=== PATIENT | male | born 1940 | race African-American/Black ===

== ENCOUNTER 2020-04-28 15:10 | Inpatient (IN) ==
[2020-04-28] MEDS ORDERED: cefTRIAXone 1,000 MG in SODIUM CHLORIDE 0.9% 100 ML IV STA (15:41)
[2020-04-28 15:49] LABS: Bacteria,Urine Occasional /HPF (Few); Bilirubin,Urine Negative (Negative); Blood, Urine Negative (Negative); Glucose,Urine (UA) Negative (Negative); Hyaline Casts,Urine 1 /LPF (0-3); Ketones,Urine Negative (Negative); Mucus,Urine Occasional /LPF (Occasional); Nitrite,Urine Negative (Negative); Protein,Urine Negative; RBC,Urine 1 /HPF (0-4); Squamous Epithelial Cell,Urine Occasional /HPF (0-10); Urine Appearance CLEAR (Clear); Urine Color Yellow (Yellow); Urine Specific Gravity 1.009 (1.001-1.035); Urine Urobilinogen < 2.0 EU/DL (0.2-1.0); WBC,Urine 3 /HPF (0-6)
[2020-04-28 16:30] LABS: Basophils # 0.1 10*3/uL (0.0-0.2); Basophils % 0.4 % (0.0-0.8); Eosinophils % 0.3 % (0.00-10.9); Hematocrit 29.4 VOL% (42.0-52.0); Hemoglobin 9.8 GM/DL (14.0-18.0); Immature Granulocytes % 0.6 %; Immature Granulocytes Absolute 0.08 #; Lymphocytes % 7.2 % (21.2-54.2); Mean Corpuscular HGB Conc 33.3 GM/DL (32-36); Mean Corpuscular Volume 78.4 FL (87-102); Mean Platelet Volume 9.9 FL (9.6-12.0); Monocytes % 12.3 % (1.7-12.7); Neutrophils % 79.2 % (38.7-73.9); Platelet Count 148 T/CUMM (130-400); Red Blood Count 3.75 MC/CUMM (3.8-5.5); Red Cell Distribution Width 18.3 % (9.3-17.3); White Blood Count 13.2 T/CUMM (4-12)
[2020-04-28 16:51] LABS: Albumin 2.9 G/DL (3.4-5.0); Bilirubin,Total 1.7 MG/DL (0.2-1.0); Calcium 8.5 MG/DL (8.5-10.1); Osmolality,Calculated 288.3 MOS/KG (273-304); Total Protein 8.5 G/DL (6.4-8.3)
[2020-04-28] MEDS ORDERED: AZITHROMYCIN 250 MG TABLET PO STA (17:02)
[2020-04-28] MEDS ORDERED: AZITHROMYCIN 250 MG TABLET ONE (17:03)
[2020-04-28] MEDS ORDERED: GLUCAGON 1 MG VIAL IM PRN (18:18)
[2020-04-28] MEDS ORDERED: ONDANSETRON 4 MG/2 ML VIAL IV PRN (18:18)
[2020-04-28] MEDS ORDERED: DOCUSATE SODIUM 100 MG CAPSULE PO PRN (18:18)
[2020-04-28] MEDS ORDERED: ACETAMINOPHEN 325 MG TABLET PO PRN (18:18)
[2020-04-28] MEDS ORDERED: DEXTROSE 50% 25 GM/50 ML VIAL IV PRN (18:18)
[2020-04-28] MEDS ORDERED: traMADol 50 MG TABLET PO PRN (18:27)
[2020-04-28] MEDS: carvediloL 6.25 MG TABLET PO SCH (22:20)
[2020-04-28] MEDS: LEVOFLOXACIN INJ 500 MG in PREMIX 1 EACH IV SCH (22:20)
[2020-04-28] MEDS: RIFAXIMIN 550 MG TABLET PO SCH (22:21)
[2020-04-28] MEDS: LACTULOSE 20 GM/30 ML UDCUP PO SCH (22:21)
[2020-04-28] MEDS: ENOXAPARIN 40 MG/0.4 ML SYRINGE SUBCUT SCH (22:21)
[2020-04-28] MEDS: TRAVOPROST 0.004% OPH SOLN 2.5 ML BOTTLE BOTH EYES SCH (22:21)
[2020-04-29 06:17] LABS: % Iron Saturation 15.2 % (18-50); Ferritin 116.4 ng/ml (26-388)
[2020-04-29 06:21] LABS: Parathyroid Hormone Intact 51.4 PG/ML (18.4-80.1)
[2020-04-29 06:23] LABS: Calcium 8.9 MG/DL (8.5-10.1); Osmolality,Calculated 285.4 MOS/KG (273-304); Thyroid Stimulating Hormone 2.26 uIU/ml (0.358-3.74)
[2020-04-29 06:24] LABS: Folate 16.6 NG/ML (5.4-24.0); Vitamin B12 363 PG/ML (211-911)
[2020-04-29 06:34] LABS: Basophils % 0.3 % (0.0-0.8); Eosinophils % 0.2 % (0.00-10.9); Hematocrit 27.3 VOL% (42.0-52.0); Hemoglobin 9.4 GM/DL (14.0-18.0); Immature Granulocytes % 1.2 %; Immature Granulocytes Absolute 0.15 #; Mean Corpuscular HGB Conc 34.4 GM/DL (32-36); Mean Corpuscular Volume 77.8 FL (87-102); Mean Platelet Volume 10.4 FL (9.6-12.0); Monocytes % 11.1 % (1.7-12.7); Neutrophils % 79.2 % (38.7-73.9); Platelet Count 124 T/CUMM (130-400); Red Blood Count 3.51 MC/CUMM (3.8-5.5); Red Cell Distribution Width 18.5 % (9.3-17.3); White Blood Count 12.8 T/CUMM (4-12)
[2020-04-29] MEDS: LEVOTHYROXINE 75 MCG TABLET PO SCH (06:49)
[2020-04-29 07:11] LABS: Band Neutrophils 3 % (0-10); Hypochromasia 1+; Lymphocytes 6 % (20-55); Platelet Estimate Normal; Segmented Neutrophils 85 % (50-85); Target Cells Few; Total Cells Counted 100
[2020-04-29 07:49] LABS: INR 1.5; PT Patient Result 16.2 SECS (9.8-11.9)
[2020-04-29 08:21] LABS: Sedimentation Rate-Westergren 79 MM/HR (0-20)
[2020-04-29] MEDS: ASPIRIN CHEW 81 MG TABLET PO SCH (08:33)
[2020-04-29] MEDS: ASCORBIC ACID 500 MG TABLET PO SCH (08:33)
[2020-04-29] MEDS: MAGNESIUM OXIDE 400 MG TABLET PO SCH (08:33)
[2020-04-29] MEDS: PANTOPRAZOLE 40 MG TABLET PO SCH (08:33)
[2020-04-29] MEDS: carvediloL 6.25 MG TABLET PO SCH ×2 (08:33→21:53)
[2020-04-29] MEDS: RIFAXIMIN 550 MG TABLET PO SCH ×2 (08:33→21:53)
[2020-04-29] MEDS: LACTULOSE 20 GM/30 ML UDCUP PO SCH ×4 (08:33→21:53)
[2020-04-29] MEDS: FUROSEMIDE 40 MG TABLET PO SCH (08:33)
[2020-04-29] MEDS: LINEZOLID 600 MG TABLET PO SCH ×2 (09:55→21:52)
[2020-04-29 11:34] LABS: Hemoglobin A1 (Alkaline) 97.2 % (96.5-98.5); Hemoglobin A2 (Alkaline) 2.8 % (1.5-3.5)
[2020-04-29] MEDS: FERROUS SULFATE 325 MG TABLET PO SCH ×2 (11:57→21:53)
[2020-04-29] MEDS: ENOXAPARIN 40 MG/0.4 ML SYRINGE SUBCUT SCH (21:52)
[2020-04-29] MEDS: CYANOCOBALAMIN 500 MCG TABLET PO SCH (21:53)
[2020-04-29] MEDS: TRAVOPROST 0.004% OPH SOLN 2.5 ML BOTTLE BOTH EYES SCH (21:53)
[2020-04-29] MEDS: LEVOFLOXACIN INJ 500 MG in PREMIX 1 EACH IV SCH (21:54)
[2020-04-30] MEDS: LEVOTHYROXINE 75 MCG TABLET PO SCH (05:39)
[2020-04-30 06:39] LABS: Basophils % 0.3 % (0.0-0.8); Eosinophils # 0.1 10*3/uL (0.0-0.87); Eosinophils % 0.6 % (0.00-10.9); Hematocrit 25.7 VOL% (42.0-52.0); Hemoglobin 8.7 GM/DL (14.0-18.0); Immature Granulocytes % 0.9 %; Lymphocytes % 8.8 % (21.2-54.2); Mean Corpuscular HGB Conc 33.9 GM/DL (32-36); Mean Corpuscular Volume 78.8 FL (87-102); Mean Platelet Volume 10.7 FL (9.6-12.0); Monocytes % 10.1 % (1.7-12.7); Neutrophils % 79.3 % (38.7-73.9); Platelet Count 111 T/CUMM (130-400); Red Blood Count 3.26 MC/CUMM (3.8-5.5); Red Cell Distribution Width 18.2 % (9.3-17.3); White Blood Count 10.8 T/CUMM (4-12)
[2020-04-30 06:55] LABS: Calcium 8.4 MG/DL (8.5-10.1); Osmolality,Calculated 293.8 MOS/KG (273-304)
[2020-04-30 06:59] LABS: Hypochromasia 1+; Ovalocytes Slight; Platelet Estimate Decreased; Target Cells Few
[2020-04-30] MEDS ORDERED: POTASSIUM CHLORIDE 20 MEQ TABLET PO ONE (08:00)
[2020-04-30] MEDS: ASPIRIN CHEW 81 MG TABLET PO SCH (09:19)
[2020-04-30] MEDS: CYANOCOBALAMIN 500 MCG TABLET PO SCH ×2 (09:20→20:29)
[2020-04-30] MEDS: LINEZOLID 600 MG TABLET PO SCH ×2 (09:20→20:29)
[2020-04-30] MEDS: FUROSEMIDE 40 MG TABLET PO SCH (09:20)
[2020-04-30] MEDS: RIFAXIMIN 550 MG TABLET PO SCH ×2 (09:20→20:28)
[2020-04-30] MEDS: PANTOPRAZOLE 40 MG TABLET PO SCH (09:20)
[2020-04-30] MEDS: MAGNESIUM OXIDE 400 MG TABLET PO SCH (09:20)
[2020-04-30] MEDS: ASCORBIC ACID 500 MG TABLET PO SCH (09:20)
[2020-04-30] MEDS: LACTULOSE 20 GM/30 ML UDCUP PO SCH ×4 (09:20→20:28)
[2020-04-30] MEDS: FERROUS SULFATE 325 MG TABLET PO SCH ×2 (09:20→20:28)
[2020-04-30] MEDS: carvediloL 6.25 MG TABLET PO SCH ×2 (09:20→20:28)
[2020-04-30] MEDS ORDERED: SODIUM BICARB INJ 50 MEQ in DEXTROSE 5% NACL 0.45% 1,000 ML IV SCH (15:30)
[2020-04-30] MEDS ORDERED: FUROSEMIDE 20 MG TABLET PO SCH (18:02)
[2020-04-30] MEDS: LEVOFLOXACIN INJ 500 MG in PREMIX 1 EACH IV SCH (20:28)
[2020-04-30] MEDS: ENOXAPARIN 40 MG/0.4 ML SYRINGE SUBCUT SCH (20:28)
[2020-04-30] MEDS: TRAVOPROST 0.004% OPH SOLN 2.5 ML BOTTLE BOTH EYES SCH (20:29)
[2020-05-01] MEDS: LEVOTHYROXINE 75 MCG TABLET PO SCH (05:38)
[2020-05-01 06:39] LABS: Basophils % 0.4 % (0.0-0.8); Eosinophils # 0.2 10*3/uL (0.0-0.87); Eosinophils % 2.7 % (0.00-10.9); Hematocrit 27.5 VOL% (42.0-52.0); Hemoglobin 9.1 GM/DL (14.0-18.0); Immature Granulocytes % 0.7 %; Immature Granulocytes Absolute 0.05 #; Lymphocytes # 0.7 10*3/uL (1.4-4.0); Lymphocytes % 10.9 % (21.2-54.2); Mean Corpuscular HGB Conc 33.1 GM/DL (32-36); Mean Corpuscular Volume 78.3 FL (87-102); Monocytes % 10.7 % (1.7-12.7); Neutrophils % 74.6 % (38.7-73.9); Platelet Count 146 T/CUMM (130-400); Red Blood Count 3.51 MC/CUMM (3.8-5.5); Red Cell Distribution Width 18.5 % (9.3-17.3); White Blood Count 6.7 T/CUMM (4-12)
[2020-05-01 06:58] LABS: Calcium 8.5 MG/DL (8.5-10.1)
[2020-05-01 07:00] LABS: Hypochromasia 2+; Microcytosis 1+; Target Cells 1+
[2020-05-01 07:01] LABS: Anisocytosis 1+; Ovalocytes Slight; Platelet Estimate Adequate; Tear Drop Cells Slight
[2020-05-01] MEDS: RIFAXIMIN 550 MG TABLET PO SCH (08:35)
[2020-05-01] MEDS: LINEZOLID 600 MG TABLET PO SCH (08:35)
[2020-05-01] MEDS: PANTOPRAZOLE 40 MG TABLET PO SCH (08:35)
[2020-05-01] MEDS: FERROUS SULFATE 325 MG TABLET PO SCH (08:35)
[2020-05-01] MEDS: CYANOCOBALAMIN 500 MCG TABLET PO SCH (08:35)
[2020-05-01] MEDS: MAGNESIUM OXIDE 400 MG TABLET PO SCH (08:35)
[2020-05-01] MEDS: ASPIRIN CHEW 81 MG TABLET PO SCH (08:35)
[2020-05-01] MEDS: ASCORBIC ACID 500 MG TABLET PO SCH (08:35)
[2020-05-01] MEDS: LACTULOSE 20 GM/30 ML UDCUP PO SCH ×2 (08:36→14:46)
[2020-05-01] MEDS: carvediloL 6.25 MG TABLET PO SCH (08:36)
[2020-05-01 11:38] VITALS: BP 140/65
[2020-05-01 17:26] LABS: Soluble Transf Receptor (sTfR) 5.4 mg/L (1.8 - 4.6)
== END 2020-05-01 17:15 | disposition home health service (06) | DRG 194 ==
LOC: EDUNIT# → EDBD → N.ED 15:10 → SUATTDRO 17:55 → N.EDINP 17:55 → N.3E 18:33
PROVIDERS: ADMIT Internal Medicine; ATTEND Emergency Medicine

== ENCOUNTER 2020-06-05 16:08 | Inpatient (IN) ==
[2020-06-05 18:48] LABS: Eosinophils # 0.1 10*3/uL (0.0-0.87); Eosinophils % 2.9 % (0.00-10.9); Hematocrit 24.5 VOL% (42.0-52.0); Hemoglobin 8.1 GM/DL (14.0-18.0); Immature Granulocytes % 0.2 %; Immature Granulocytes Absolute 0.01 #; Lymphocytes # 0.8 10*3/uL (1.4-4.0); Mean Corpuscular HGB Conc 33.1 GM/DL (32-36); Mean Corpuscular Volume 78.3 FL (87-102); Mean Platelet Volume 10.8 FL (9.6-12.0); Monocytes % 21.2 % (1.7-12.7); Neutrophils % 54.7 % (38.7-73.9); Platelet Count 155 T/CUMM (130-400); Red Blood Count 3.13 MC/CUMM (3.8-5.5); Red Cell Distribution Width 20.8 % (9.3-17.3); White Blood Count 4.1 T/CUMM (4-12)
[2020-06-05 19:24] LABS: Bilirubin,Total 0.9 MG/DL (0.2-1.0); Calcium 9.2 MG/DL (8.5-10.1); Osmolality,Calculated 293.3 MOS/KG (273-304); Potassium 4.2 MMOL/L (3.5-5.1); Total Protein 8.1 G/DL (6.4-8.3)
[2020-06-05 19:40] LABS: Eosinophils 4 % (0-10); Lymphocytes 19 % (20-55); Segmented Neutrophils 60 % (50-85); Total Cells Counted 100
[2020-06-05 19:43] LABS: Anisocytosis 1+
[2020-06-05 19:44] LABS: Hypochromasia 1+; Microcytosis 1+; Target Cells 1+
[2020-06-05 19:45] LABS: Ovalocytes Few; Platelet Estimate Adequate; Polychromasia Few
[2020-06-05] MEDS ORDERED: ONDANSETRON 4 MG/2 ML VIAL IV PRN (21:11)
[2020-06-05] MEDS ORDERED: ACETAMINOPHEN 325 MG TABLET PO PRN (21:11)
[2020-06-05] MEDS ORDERED: ENOXAPARIN 30 MG/0.3 ML SYRINGE SUBCUT SCH (21:30)
[2020-06-06] MEDS: FERROUS SULFATE 325 MG TABLET PO SCH ×3 (00:16→22:47)
[2020-06-06] MEDS: CHOLECALCIFEROL 1,000 UNIT TABLET PO SCH ×2 (00:16→22:47)
[2020-06-06] MEDS: DONEPEZIL 5 MG TABLET PO SCH ×2 (00:17→22:46)
[2020-06-06] MEDS: CYANOCOBALAMIN 500 MCG TABLET PO SCH ×3 (00:17→22:47)
[2020-06-06] MEDS: carvediloL 6.25 MG TABLET PO SCH ×2 (00:21→08:36)
[2020-06-06] MEDS: LEVOTHYROXINE 75 MCG TABLET PO SCH (05:24)
[2020-06-06 05:53] LABS: Basophils # 0.1 10*3/uL (0.0-0.2); Basophils % 1.5 % (0.0-0.8); Eosinophils # 0.1 10*3/uL (0.0-0.87); Eosinophils % 3.5 % (0.00-10.9); Hematocrit 23.1 VOL% (42.0-52.0); Hemoglobin 7.6 GM/DL (14.0-18.0); Immature Granulocytes % 0.5 %; Immature Granulocytes Absolute 0.02 #; Lymphocytes # 0.9 10*3/uL (1.4-4.0); Lymphocytes % 22.1 % (21.2-54.2); Mean Corpuscular HGB Conc 32.9 GM/DL (32-36); Mean Corpuscular Volume 78.3 FL (87-102); Mean Platelet Volume 10.8 FL (9.6-12.0); Monocytes % 24.3 % (1.7-12.7); Neutrophils % 48.1 % (38.7-73.9); Platelet Count 149 T/CUMM (130-400); Red Blood Count 2.95 MC/CUMM (3.8-5.5); Red Cell Distribution Width 20.4 % (9.3-17.3)
[2020-06-06 06:07] LABS: INR 1.3; PT Patient Result 13.5 SECS (9.8-11.9); Partial Thromboplastin Time 38.1 SECS (23.9-33.8)
[2020-06-06 06:08] LABS: Albumin 2.8 G/DL (3.4-5.0); Bilirubin,Total 1.6 MG/DL (0.2-1.0); Calcium 9.1 MG/DL (8.5-10.1); Osmolality,Calculated 292.3 MOS/KG (273-304); Potassium 4.3 MMOL/L (3.5-5.1); Total Protein 7.7 G/DL (6.4-8.3)
[2020-06-06 06:11] LABS: Albumin 2.6 G/DL (3.4-5.0); Bilirubin,Direct 0.48 MG/DL (0.0-0.20); Bilirubin,Total 1.5 MG/DL (0.2-1.0); Calcium 9.1 MG/DL (8.5-10.1); Osmolality,Calculated 296.1 MOS/KG (273-304); Potassium 4.3 MMOL/L (3.5-5.1); Total Protein 7.8 G/DL (6.4-8.3)
[2020-06-06 07:06] LABS: Band Neutrophils 4 % (0-10); Eosinophils 2 % (0-10); Lymphocytes 16 % (20-55); Platelet Estimate Adequate; Segmented Neutrophils 50 % (50-85); Total Cells Counted 100
[2020-06-06 07:07] LABS: Anisocytosis 2+; Macrocytosis 2+; Ovalocytes Few; Target Cells 1+
[2020-06-06 07:08] LABS: Hypochromasia 1+
[2020-06-06] MEDS: ASPIRIN CHEW 81 MG TABLET PO SCH (08:37)
[2020-06-06] MEDS: FUROSEMIDE 40 MG/4 ML VIAL IV SCH ×2 (08:37→17:15)
[2020-06-06] MEDS: MAGNESIUM OXIDE 400 MG TABLET PO SCH (08:38)
[2020-06-06] MEDS: LACTULOSE 20 GM/30 ML UDCUP PO SCH ×4 (08:38→22:48)
[2020-06-06] MEDS: PANTOPRAZOLE 40 MG TABLET PO SCH (08:39)
[2020-06-06] MEDS: amLODIPine 5 MG TABLET PO SCH (08:39)
[2020-06-06] MEDS: ASCORBIC ACID 500 MG TABLET PO SCH (08:50)
[2020-06-06 11:18] LABS: Basophils # 0.1 10*3/uL (0.0-0.2); Basophils % 1.3 % (0.0-0.8); Eosinophils # 0.1 10*3/uL (0.0-0.87); Eosinophils % 3.7 % (0.00-10.9); Hematocrit 24.1 VOL% (42.0-52.0); Immature Granulocytes % 0.3 %; Immature Granulocytes Absolute 0.01 #; Lymphocytes # 0.8 10*3/uL (1.4-4.0); Lymphocytes % 21.3 % (21.2-54.2); Mean Corpuscular HGB Conc 33.2 GM/DL (32-36); Mean Platelet Volume 10.2 FL (9.6-12.0); Monocytes % 23.2 % (1.7-12.7); Neutrophils % 50.2 % (38.7-73.9); Platelet Count 146 T/CUMM (130-400); Red Blood Count 3.05 MC/CUMM (3.8-5.5); White Blood Count 3.8 T/CUMM (4-12)
[2020-06-06 11:43] LABS: Band Neutrophils 3 % (0-10); Eosinophils 7 % (0-10); Lymphocytes 19 % (20-55); Platelet Estimate Adequate; Segmented Neutrophils 46 % (50-85); Total Cells Counted 100
[2020-06-06 11:44] LABS: Anisocytosis 2+; Hypochromasia 2+; Macrocytosis 2+; Poikilocytosis 1+; Tear Drop Cells Few
[2020-06-06] MEDS: TRAVOPROST 0.004% OPH SOLN 2.5 ML BOTTLE BOTH EYES SCH (22:47)
[2020-06-07 05:30] LABS: Basophils # 0.1 10*3/uL (0.0-0.2); Basophils % 1.3 % (0.0-0.8); Eosinophils # 0.2 10*3/uL (0.0-0.87); Eosinophils % 4.6 % (0.00-10.9); Hematocrit 23.5 VOL% (42.0-52.0); Hemoglobin 7.7 GM/DL (14.0-18.0); Immature Granulocytes % 0.5 %; Immature Granulocytes Absolute 0.02 #; Lymphocytes # 0.9 10*3/uL (1.4-4.0); Lymphocytes % 21.6 % (21.2-54.2); Mean Corpuscular HGB Conc 32.8 GM/DL (32-36); Mean Corpuscular Volume 78.6 FL (87-102); Mean Platelet Volume 10.8 FL (9.6-12.0); Monocytes % 23.2 % (1.7-12.7); Neutrophils % 48.8 % (38.7-73.9); Platelet Count 150 T/CUMM (130-400); Red Blood Count 2.99 MC/CUMM (3.8-5.5); Red Cell Distribution Width 20.7 % (9.3-17.3); White Blood Count 3.9 T/CUMM (4-12)
[2020-06-07 05:53] LABS: Osmolality,Calculated 296.1 MOS/KG (273-304); Potassium 4.2 MMOL/L (3.5-5.1)
[2020-06-07 05:56] LABS: Albumin 2.8 G/DL (3.4-5.0); Bilirubin,Total 1.4 MG/DL (0.2-1.0); Calcium 9.1 MG/DL (8.5-10.1); Osmolality,Calculated 296.1 MOS/KG (273-304); Potassium 4.2 MMOL/L (3.5-5.1); Total Protein 7.9 G/DL (6.4-8.3)
[2020-06-07] MEDS: LEVOTHYROXINE 75 MCG TABLET PO SCH (06:17)
[2020-06-07 06:36] LABS: Anisocytosis 2+; Band Neutrophils 1 % (0-10); Eosinophils 6 % (0-10); Lymphocytes 20 % (20-55); Macrocytosis 2+; Ovalocytes Few; Platelet Estimate Normal; Poikilocytosis Slight; Segmented Neutrophils 50 % (50-85); Target Cells 1+; Tear Drop Cells Few; Total Cells Counted 100
[2020-06-07] MEDS: MAGNESIUM OXIDE 400 MG TABLET PO SCH (09:58)
[2020-06-07] MEDS: amLODIPine 5 MG TABLET PO SCH (09:58)
[2020-06-07] MEDS: LACTULOSE 20 GM/30 ML UDCUP PO SCH ×4 (09:58→21:10)
[2020-06-07] MEDS: ASPIRIN CHEW 81 MG TABLET PO SCH (09:58)
[2020-06-07] MEDS: PANTOPRAZOLE 40 MG TABLET PO SCH (09:58)
[2020-06-07] MEDS: ASCORBIC ACID 500 MG TABLET PO SCH (09:58)
[2020-06-07] MEDS: MULTIVITAMIN (BEROCCA) TABLET PO SCH (09:59)
[2020-06-07] MEDS: FERROUS SULFATE 325 MG TABLET PO SCH ×2 (09:59→21:10)
[2020-06-07] MEDS: CYANOCOBALAMIN 500 MCG TABLET PO SCH ×2 (09:59→21:13)
[2020-06-07] MEDS: FUROSEMIDE 40 MG/4 ML VIAL IV SCH ×2 (09:59→16:26)
[2020-06-07] MEDS: THIAMINE 100 MG TABLET PO SCH (10:10)
[2020-06-07] MEDS: CHOLECALCIFEROL 1,000 UNIT TABLET PO SCH (21:09)
[2020-06-07] MEDS: TRAVOPROST 0.004% OPH SOLN 2.5 ML BOTTLE BOTH EYES SCH (21:09)
[2020-06-07] MEDS: DONEPEZIL 5 MG TABLET PO SCH (21:10)
[2020-06-08] MEDS: LEVOTHYROXINE 75 MCG TABLET PO SCH (06:10)
[2020-06-08 06:32] LABS: Calcium 9.1 MG/DL (8.5-10.1); Potassium 4.1 MMOL/L (3.5-5.1)
[2020-06-08] MEDS ORDERED: LACTULOSE 20 GM/30 ML UDCUP PO ONE (07:32)
[2020-06-08] MEDS: PANTOPRAZOLE 40 MG TABLET PO SCH (08:38)
[2020-06-08] MEDS: MAGNESIUM OXIDE 400 MG TABLET PO SCH (08:38)
[2020-06-08] MEDS: THIAMINE 100 MG TABLET PO SCH (08:38)
[2020-06-08] MEDS: ASPIRIN CHEW 81 MG TABLET PO SCH (08:38)
[2020-06-08] MEDS: CYANOCOBALAMIN 500 MCG TABLET PO SCH ×2 (08:39→20:48)
[2020-06-08] MEDS: MULTIVITAMIN (BEROCCA) TABLET PO SCH (08:39)
[2020-06-08] MEDS: FERROUS SULFATE 325 MG TABLET PO SCH ×2 (08:39→20:48)
[2020-06-08] MEDS: FUROSEMIDE 40 MG/4 ML VIAL IV SCH ×2 (08:40→16:29)
[2020-06-08] MEDS: amLODIPine 5 MG TABLET PO SCH (08:45)
[2020-06-08] MEDS: LACTULOSE 20 GM/30 ML UDCUP PO SCH ×4 (09:28→20:48)
[2020-06-08] MEDS: ASCORBIC ACID 500 MG TABLET PO SCH (09:29)
[2020-06-08] MEDS: RIFAXIMIN 550 MG TABLET PO SCH ×2 (09:29→21:15)
[2020-06-08] MEDS: ALBUMIN 25% 25 GM in PREMIX 1 EACH IV SCH ×2 (13:24→16:32)
[2020-06-08] MEDS: CHOLECALCIFEROL 1,000 UNIT TABLET PO SCH (20:47)
[2020-06-08] MEDS: TRAVOPROST 0.004% OPH SOLN 2.5 ML BOTTLE BOTH EYES SCH (20:48)
[2020-06-08] MEDS: DONEPEZIL 5 MG TABLET PO SCH (20:48)
[2020-06-09] MEDS: ALBUMIN 25% 25 GM in PREMIX 1 EACH IV SCH ×3 (01:10→16:21)
[2020-06-09] MEDS: LEVOTHYROXINE 75 MCG TABLET PO SCH (06:11)
[2020-06-09 07:18] LABS: Eosinophils # 0.2 10*3/uL (0.0-0.87); Eosinophils % 4.1 % (0.00-10.9); Hematocrit 24.7 VOL% (42.0-52.0); Hemoglobin 8.2 GM/DL (14.0-18.0); Immature Granulocytes % 0.5 %; Immature Granulocytes Absolute 0.02 #; Lymphocytes # 0.8 10*3/uL (1.4-4.0); Mean Corpuscular HGB Conc 33.2 GM/DL (32-36); Mean Corpuscular Volume 78.7 FL (87-102); Mean Platelet Volume 10.9 FL (9.6-12.0); Monocytes % 22.7 % (1.7-12.7); Neutrophils % 51.7 % (38.7-73.9); Platelet Count 132 T/CUMM (130-400); Red Blood Count 3.14 MC/CUMM (3.8-5.5); Red Cell Distribution Width 20.4 % (9.3-17.3); White Blood Count 4.2 T/CUMM (4-12)
[2020-06-09 07:42] LABS: Eosinophils 4 % (0-10); Hypochromasia 1+; Lymphocytes 17 % (20-55); Platelet Estimate Normal; Segmented Neutrophils 60 % (50-85); Total Cells Counted 100
[2020-06-09 07:43] LABS: Macrocytosis 1+; Ovalocytes Slight
[2020-06-09 07:49] LABS: Calcium 9.5 MG/DL (8.5-10.1); Osmolality,Calculated 298.8 MOS/KG (273-304); Potassium 3.9 MMOL/L (3.5-5.1)
[2020-06-09] MEDS: LACTULOSE 20 GM/30 ML UDCUP PO SCH ×4 (09:46→21:16)
[2020-06-09] MEDS: PANTOPRAZOLE 40 MG TABLET PO SCH (09:47)
[2020-06-09] MEDS: THIAMINE 100 MG TABLET PO SCH (09:47)
[2020-06-09] MEDS: CYANOCOBALAMIN 500 MCG TABLET PO SCH ×2 (09:47→21:16)
[2020-06-09] MEDS: RIFAXIMIN 550 MG TABLET PO SCH ×2 (09:47→21:16)
[2020-06-09] MEDS: MAGNESIUM OXIDE 400 MG TABLET PO SCH (09:47)
[2020-06-09] MEDS: FERROUS SULFATE 325 MG TABLET PO SCH ×2 (09:47→21:16)
[2020-06-09] MEDS: FUROSEMIDE 40 MG/4 ML VIAL IV SCH ×2 (09:48→16:16)
[2020-06-09] MEDS: MULTIVITAMIN (BEROCCA) TABLET PO SCH (09:48)
[2020-06-09] MEDS: ASPIRIN CHEW 81 MG TABLET PO SCH (09:48)
[2020-06-09] MEDS: ASCORBIC ACID 500 MG TABLET PO SCH (09:48)
[2020-06-09] MEDS: amLODIPine 5 MG TABLET PO SCH (09:48)
[2020-06-09] MEDS ORDERED: LACTULOSE 20 GM/30 ML UDCUP PO ONE (10:58)
[2020-06-09] MEDS: CHOLECALCIFEROL 1,000 UNIT TABLET PO SCH (21:16)
[2020-06-09] MEDS: TRAVOPROST 0.004% OPH SOLN 2.5 ML BOTTLE BOTH EYES SCH (21:16)
[2020-06-09] MEDS: DONEPEZIL 5 MG TABLET PO SCH (21:16)
[2020-06-10] MEDS: ALBUMIN 25% 25 GM in PREMIX 1 EACH IV SCH ×2 (01:40→09:25)
[2020-06-10 05:27] LABS: Basophils # 0.1 10*3/uL (0.0-0.2); Eosinophils # 0.2 10*3/uL (0.0-0.87); Eosinophils % 3.5 % (0.00-10.9); Hematocrit 24.1 VOL% (42.0-52.0); Hemoglobin 7.9 GM/DL (14.0-18.0); Immature Granulocytes % 0.4 %; Immature Granulocytes Absolute 0.02 #; Lymphocytes # 0.7 10*3/uL (1.4-4.0); Lymphocytes % 14.2 % (21.2-54.2); Mean Corpuscular HGB Conc 32.8 GM/DL (32-36); Mean Corpuscular Volume 78.5 FL (87-102); Mean Platelet Volume 9.9 FL (9.6-12.0); Monocytes % 19.6 % (1.7-12.7); Neutrophils % 61.3 % (38.7-73.9); Platelet Count 109 T/CUMM (130-400); Red Blood Count 3.07 MC/CUMM (3.8-5.5); Red Cell Distribution Width 20.5 % (9.3-17.3); White Blood Count 5.2 T/CUMM (4-12)
[2020-06-10] MEDS: LEVOTHYROXINE 75 MCG TABLET PO SCH (05:42)
[2020-06-10 05:52] LABS: Albumin 3.7 G/DL (3.4-5.0); Bilirubin,Total 2.1 MG/DL (0.2-1.0); Calcium 9.7 MG/DL (8.5-10.1); Osmolality,Calculated 298.8 MOS/KG (273-304); Potassium 3.9 MMOL/L (3.5-5.1); Total Protein 8.6 G/DL (6.4-8.3)
[2020-06-10 06:44] LABS: Eosinophils 3 % (0-10); Hypochromasia 1+; Lymphocytes 13 % (20-55); Microcytosis Slight; Ovalocytes Slight; Platelet Estimate Decreased; Segmented Neutrophils 68 % (50-85); Target Cells Few; Total Cells Counted 100
[2020-06-10] MEDS: LACTULOSE 20 GM/30 ML UDCUP PO SCH ×4 (09:18→20:23)
[2020-06-10] MEDS: MULTIVITAMIN (BEROCCA) TABLET PO SCH (09:19)
[2020-06-10] MEDS: THIAMINE 100 MG TABLET PO SCH (09:19)
[2020-06-10] MEDS: amLODIPine 5 MG TABLET PO SCH (09:19)
[2020-06-10] MEDS: MAGNESIUM OXIDE 400 MG TABLET PO SCH (09:19)
[2020-06-10] MEDS: ASPIRIN CHEW 81 MG TABLET PO SCH (09:19)
[2020-06-10] MEDS: RIFAXIMIN 550 MG TABLET PO SCH ×2 (09:19→20:24)
[2020-06-10] MEDS: ASCORBIC ACID 500 MG TABLET PO SCH (09:20)
[2020-06-10] MEDS: FERROUS SULFATE 325 MG TABLET PO SCH ×2 (09:20→20:23)
[2020-06-10] MEDS: PANTOPRAZOLE 40 MG TABLET PO SCH (09:20)
[2020-06-10] MEDS: FUROSEMIDE 40 MG/4 ML VIAL IV SCH (09:21)
[2020-06-10] MEDS: CYANOCOBALAMIN 500 MCG TABLET PO SCH ×2 (09:25→20:23)
[2020-06-10] MEDS: FUROSEMIDE 80 MG TABLET PO SCH (17:10)
[2020-06-10] MEDS: CHOLECALCIFEROL 1,000 UNIT TABLET PO SCH (20:24)
[2020-06-10] MEDS: DONEPEZIL 5 MG TABLET PO SCH (20:24)
[2020-06-10] MEDS: SPIRONOLACTONE 25 MG TABLET PO SCH (20:24)
[2020-06-10] MEDS: TRAVOPROST 0.004% OPH SOLN 2.5 ML BOTTLE BOTH EYES SCH (20:24)
[2020-06-11] MEDS: LEVOTHYROXINE 75 MCG TABLET PO SCH (05:35)
[2020-06-11 06:30] LABS: Basophils % 0.4 % (0.0-0.8); Eosinophils # 0.2 10*3/uL (0.0-0.87); Eosinophils % 2.3 % (0.00-10.9); Hematocrit 25.4 VOL% (42.0-52.0); Hemoglobin 8.3 GM/DL (14.0-18.0); Immature Granulocytes % 0.5 %; Immature Granulocytes Absolute 0.04 #; Lymphocytes # 0.8 10*3/uL (1.4-4.0); Lymphocytes % 9.1 % (21.2-54.2); Mean Corpuscular HGB Conc 32.7 GM/DL (32-36); Mean Corpuscular Volume 78.6 FL (87-102); Mean Platelet Volume 10.5 FL (9.6-12.0); Monocytes % 15.3 % (1.7-12.7); Neutrophils % 72.4 % (38.7-73.9); Platelet Count 106 T/CUMM (130-400); Red Blood Count 3.23 MC/CUMM (3.8-5.5); Red Cell Distribution Width 20.3 % (9.3-17.3); White Blood Count 8.3 T/CUMM (4-12)
[2020-06-11 06:52] LABS: Calcium 9.8 MG/DL (8.5-10.1); Osmolality,Calculated 298.8 MOS/KG (273-304); Potassium 3.6 MMOL/L (3.5-5.1)
[2020-06-11] MEDS: ASCORBIC ACID 500 MG TABLET PO SCH (09:00)
[2020-06-11] MEDS: THIAMINE 100 MG TABLET PO SCH (09:00)
[2020-06-11] MEDS: FUROSEMIDE 80 MG TABLET PO SCH ×2 (09:00→16:23)
[2020-06-11] MEDS: PANTOPRAZOLE 40 MG TABLET PO SCH (09:00)
[2020-06-11] MEDS: FERROUS SULFATE 325 MG TABLET PO SCH ×2 (09:00→21:15)
[2020-06-11] MEDS: CYANOCOBALAMIN 500 MCG TABLET PO SCH ×2 (09:00→21:14)
[2020-06-11] MEDS: amLODIPine 5 MG TABLET PO SCH (09:01)
[2020-06-11] MEDS: MULTIVITAMIN (BEROCCA) TABLET PO SCH (09:01)
[2020-06-11] MEDS: MAGNESIUM OXIDE 400 MG TABLET PO SCH (09:01)
[2020-06-11] MEDS: RIFAXIMIN 550 MG TABLET PO SCH ×2 (09:01→21:15)
[2020-06-11] MEDS: SPIRONOLACTONE 25 MG TABLET PO SCH ×2 (09:01→21:15)
[2020-06-11] MEDS: ASPIRIN CHEW 81 MG TABLET PO SCH (09:01)
[2020-06-11] MEDS: LACTULOSE 20 GM/30 ML UDCUP PO SCH ×4 (09:04→21:14)
[2020-06-11] MEDS: CHOLECALCIFEROL 1,000 UNIT TABLET PO SCH (21:14)
[2020-06-11] MEDS: TRAVOPROST 0.004% OPH SOLN 2.5 ML BOTTLE BOTH EYES SCH (21:15)
[2020-06-11] MEDS: DONEPEZIL 5 MG TABLET PO SCH (21:15)
[2020-06-12] MEDS: LEVOTHYROXINE 75 MCG TABLET PO SCH (05:35)
[2020-06-12] MEDS: ASCORBIC ACID 500 MG TABLET PO SCH (10:12)
[2020-06-12] MEDS: RIFAXIMIN 550 MG TABLET PO SCH (10:12)
[2020-06-12] MEDS: CYANOCOBALAMIN 500 MCG TABLET PO SCH (10:12)
[2020-06-12] MEDS: MAGNESIUM OXIDE 400 MG TABLET PO SCH (10:13)
[2020-06-12] MEDS: ASPIRIN CHEW 81 MG TABLET PO SCH (10:13)
[2020-06-12] MEDS: PANTOPRAZOLE 40 MG TABLET PO SCH (10:13)
[2020-06-12] MEDS: THIAMINE 100 MG TABLET PO SCH (10:13)
[2020-06-12] MEDS: amLODIPine 5 MG TABLET PO SCH (10:13)
[2020-06-12] MEDS: FERROUS SULFATE 325 MG TABLET PO SCH (10:13)
[2020-06-12] MEDS: SPIRONOLACTONE 25 MG TABLET PO SCH (10:14)
[2020-06-12] MEDS: MULTIVITAMIN (BEROCCA) TABLET PO SCH (10:14)
[2020-06-12] MEDS: LACTULOSE 20 GM/30 ML UDCUP PO SCH (10:14)
[2020-06-12] MEDS: FUROSEMIDE 80 MG TABLET PO SCH (10:14)
[2020-06-12 11:39] VITALS: BP 117/63
== END 2020-06-12 12:30 | disposition swing bed (61) | DRG 432 ==
LOC: N.ED 16:08 → N.EDINP 16:08 → N.TELEN 22:51 → SUATTDRO 06-07 11:18
PROVIDERS: ADMIT Internal Medicine; ATTEND Emergency Medicine

== ENCOUNTER 2020-07-05 11:36 | Inpatient (IN) ==
[2020-07-05 12:58] LABS: Basophils # 0.1 10*3/uL (0.0-0.2); Basophils % 1.8 % (0.0-0.8); Eosinophils # 0.2 10*3/uL (0.0-0.87); Eosinophils % 3.8 % (0.00-10.9); Hematocrit 28.3 VOL% (42.0-52.0); Hemoglobin 9.6 GM/DL (14.0-18.0); Immature Granulocytes % 0.3 %; Immature Granulocytes Absolute 0.01 #; Lymphocytes # 0.8 10*3/uL (1.4-4.0); Mean Corpuscular HGB Conc 33.9 GM/DL (32-36); Mean Corpuscular Volume 77.5 FL (87-102); Mean Platelet Volume 11.1 FL (9.6-12.0); Monocytes % 18.8 % (1.7-12.7); Neutrophils % 54.3 % (38.7-73.9); Platelet Count 117 T/CUMM (130-400); Red Blood Count 3.65 MC/CUMM (3.8-5.5); Red Cell Distribution Width 19.5 % (9.3-17.3)
[2020-07-05 13:11] LABS: Bacteria,Urine Occasional /HPF (Few); Bilirubin,Urine Negative (Negative); Blood, Urine Negative (Negative); Glucose,Urine (UA) Negative (Negative); Hyaline Casts,Urine 1 /LPF (0-3); Ketones,Urine Negative (Negative); Mucus,Urine Occasional /LPF (Occasional); Nitrite,Urine Negative (Negative); Protein,Urine Negative; RBC,Urine <1 /HPF (0-4); Urine Appearance CLEAR (Clear); Urine Color Yellow (Yellow); Urine Specific Gravity 1.006 (1.001-1.035); Urine Urobilinogen < 2.0 EU/DL (0.2-1.0); WBC,Urine <1 /HPF (0-6)
[2020-07-05 13:23] LABS: Albumin 3.2 G/DL (3.4-5.0); Bilirubin,Total 1.1 MG/DL (0.2-1.0); Calcium 9.4 MG/DL (8.5-10.1); Osmolality,Calculated 299.3 MOS/KG (273-304); Total Protein 8.3 G/DL (6.4-8.3)
[2020-07-05] MEDS ORDERED: DEXTROSE 50% 25 GM/50 ML VIAL IV PRN (15:27)
[2020-07-05] MEDS ORDERED: MORPHINE 4 MG/1 ML VIAL IV PRN (15:27)
[2020-07-05] MEDS ORDERED: ONDANSETRON 4 MG/2 ML VIAL IV PRN (15:27)
[2020-07-05] MEDS ORDERED: hydrALAZINE 20 MG/1 ML VIAL IV PRN (15:27)
[2020-07-05] MEDS ORDERED: GLUCAGON 1 MG VIAL IM PRN (15:27)
[2020-07-05] MEDS ORDERED: guaiFENesin/DM ER 600-30 MG TABLET PO PRN (15:27)
[2020-07-05 16:14] LABS: Band Neutrophils 5 % (0-10); Eosinophils 5 % (0-10); Lymphocytes 21 % (20-55); Segmented Neutrophils 57 % (50-85); Total Cells Counted 100
[2020-07-05 16:15] LABS: Barbiturates Screen,Urine Negative (Negative); Benzodiazepines Screen,Urine Negative (Negative); Cannabinoid Screen,Urine Negative (Negative); Opiate Screen,Urine Negative (Negative); Phencyclidine Screen,Urine Negative (Negative)
[2020-07-05 16:15] LABS: Hypochromasia 3+; Microcytosis 1+; Ovalocytes Slight; Platelet Estimate Adequate
[2020-07-05] MEDS: LACTULOSE 20 GM/30 ML UDCUP PO SCH ×2 (18:04→21:00)
[2020-07-05] MEDS: ENOXAPARIN 30 MG/0.3 ML SYRINGE SUBCUT SCH (18:04)
[2020-07-05] MEDS: INSULIN LISPRO 100 UNIT/ML SUBCUT SCH ×2 (18:04→21:00)
[2020-07-06] MEDS: LACTULOSE 20 GM/30 ML UDCUP PO SCH ×6 (01:31→22:08)
[2020-07-06 06:01] LABS: Basophils # 0.1 10*3/uL (0.0-0.2); Eosinophils # 0.2 10*3/uL (0.0-0.87); Eosinophils % 5.2 % (0.00-10.9); Hematocrit 26.6 VOL% (42.0-52.0); Hemoglobin 9.1 GM/DL (14.0-18.0); Immature Granulocytes % 0.3 %; Immature Granulocytes Absolute 0.01 #; Lymphocytes # 0.8 10*3/uL (1.4-4.0); Lymphocytes % 22.2 % (21.2-54.2); Mean Corpuscular HGB Conc 34.2 GM/DL (32-36); Mean Corpuscular Volume 76.9 FL (87-102); Monocytes % 17.9 % (1.7-12.7); Neutrophils % 52.4 % (38.7-73.9); Platelet Count 121 T/CUMM (130-400); Red Blood Count 3.46 MC/CUMM (3.8-5.5); Red Cell Distribution Width 18.9 % (9.3-17.3); White Blood Count 3.5 T/CUMM (4-12)
[2020-07-06 06:24] LABS: Albumin 2.8 G/DL (3.4-5.0); Bilirubin,Total 1.4 MG/DL (0.2-1.0); Calcium 9.5 MG/DL (8.5-10.1); Osmolality,Calculated 299.8 MOS/KG (273-304); Risk Ratio 1.74; Thyroid Stimulating Hormone 5.84 uIU/ml (0.358-3.74); VLDL CHOLESTEROL 6.2 MG/DL
[2020-07-06 07:31] LABS: Anisocytosis 1+; Band Neutrophils 7 % (0-10); Eosinophils 6 % (0-10); Lymphocytes 18 % (20-55); Macrocytosis 2+; Platelet Estimate Adequate; Segmented Neutrophils 57 % (50-85); Target Cells 2+; Total Cells Counted 100
[2020-07-06 07:32] LABS: Ovalocytes Few; Poikilocytosis Slight
[2020-07-06] MEDS: INSULIN LISPRO 100 UNIT/ML SUBCUT SCH ×4 (08:36→22:09)
[2020-07-06] MEDS ORDERED: PANTOPRAZOLE 40 MG TABLET PO SCH (09:00)
[2020-07-06] MEDS: FUROSEMIDE 40 MG TABLET PO SCH (10:10)
[2020-07-06] MEDS: THIAMINE 100 MG TABLET PO SCH (10:10)
[2020-07-06] MEDS: RIFAXIMIN 550 MG TABLET PO SCH ×2 (10:10→22:08)
[2020-07-06] MEDS: ASCORBIC ACID 500 MG TABLET PO SCH (12:48)
[2020-07-06] MEDS: ASPIRIN CHEW 81 MG TABLET PO SCH (12:49)
[2020-07-06] MEDS: MAGNESIUM OXIDE 400 MG TABLET PO SCH (12:49)
[2020-07-06] MEDS: SPIRONOLACTONE 25 MG TABLET PO SCH ×2 (12:49→22:08)
[2020-07-06] MEDS: MULTIVITAMIN (BEROCCA) TABLET PO SCH (12:49)
[2020-07-06] MEDS: FERROUS SULFATE 325 MG TABLET PO SCH (17:49)
[2020-07-06] MEDS: ENOXAPARIN 30 MG/0.3 ML SYRINGE SUBCUT SCH (22:08)
[2020-07-06] MEDS: CHOLECALCIFEROL 1,000 UNIT TABLET PO SCH (22:08)
[2020-07-06] MEDS: DONEPEZIL 10 MG TABLET PO SCH (22:08)
[2020-07-06] MEDS: TRAVOPROST 0.004% OPH SOLN 2.5 ML BOTTLE BOTH EYES SCH (22:20)
[2020-07-07] MEDS: LACTULOSE 20 GM/30 ML UDCUP PO SCH ×6 (01:48→21:51)
[2020-07-07 05:08] LABS: Basophils # 0.1 10*3/uL (0.0-0.2); Basophils % 1.9 % (0.0-0.8); Eosinophils # 0.2 10*3/uL (0.0-0.87); Eosinophils % 4.9 % (0.00-10.9); Hematocrit 28.2 VOL% (42.0-52.0); Hemoglobin 9.5 GM/DL (14.0-18.0); Immature Granulocytes % 0.3 %; Immature Granulocytes Absolute 0.01 #; Lymphocytes % 26.7 % (21.2-54.2); Mean Corpuscular HGB Conc 33.7 GM/DL (32-36); Mean Platelet Volume 10.7 FL (9.6-12.0); Monocytes % 17.5 % (1.7-12.7); Neutrophils % 48.7 % (38.7-73.9); Platelet Count 122 T/CUMM (130-400); Red Blood Count 3.66 MC/CUMM (3.8-5.5); Red Cell Distribution Width 18.8 % (9.3-17.3); White Blood Count 3.7 T/CUMM (4-12)
[2020-07-07 05:30] LABS: Albumin 2.8 G/DL (3.4-5.0); Calcium 9.6 MG/DL (8.5-10.1); Osmolality,Calculated 294.1 MOS/KG (273-304); Total Protein 8.1 G/DL (6.4-8.3)
[2020-07-07] MEDS: LEVOTHYROXINE 75 MCG TABLET PO SCH (05:58)
[2020-07-07 06:31] LABS: Band Neutrophils 1 % (0-10); Eosinophils 4 % (0-10); Lymphocytes 22 % (20-55); Segmented Neutrophils 57 % (50-85); Total Cells Counted 100
[2020-07-07 06:32] LABS: Anisocytosis 2+; Hypochromasia 2+; Ovalocytes Few; Platelet Estimate Adequate
[2020-07-07 06:33] LABS: Macrocytosis 2+; Target Cells 2+
[2020-07-07] MEDS: INSULIN LISPRO 100 UNIT/ML SUBCUT SCH ×4 (08:12→21:52)
[2020-07-07] MEDS: ASCORBIC ACID 500 MG TABLET PO SCH (09:53)
[2020-07-07] MEDS: RIFAXIMIN 550 MG TABLET PO SCH ×2 (09:53→21:51)
[2020-07-07] MEDS: ASPIRIN CHEW 81 MG TABLET PO SCH (09:53)
[2020-07-07] MEDS: SPIRONOLACTONE 25 MG TABLET PO SCH ×2 (09:54→21:51)
[2020-07-07] MEDS: MULTIVITAMIN (BEROCCA) TABLET PO SCH (09:54)
[2020-07-07] MEDS: FERROUS SULFATE 325 MG TABLET PO SCH ×2 (09:54→17:29)
[2020-07-07] MEDS: THIAMINE 100 MG TABLET PO SCH (09:54)
[2020-07-07] MEDS: MAGNESIUM OXIDE 400 MG TABLET PO SCH (09:54)
[2020-07-07] MEDS: FUROSEMIDE 40 MG TABLET PO SCH (09:54)
[2020-07-07] MEDS: DONEPEZIL 10 MG TABLET PO SCH (21:51)
[2020-07-07] MEDS: ENOXAPARIN 30 MG/0.3 ML SYRINGE SUBCUT SCH (21:51)
[2020-07-07] MEDS: CHOLECALCIFEROL 1,000 UNIT TABLET PO SCH (21:51)
[2020-07-07] MEDS: TRAVOPROST 0.004% OPH SOLN 2.5 ML BOTTLE BOTH EYES SCH (21:52)
[2020-07-08] MEDS: LACTULOSE 20 GM/30 ML UDCUP PO SCH ×6 (01:01→20:23)
[2020-07-08] MEDS: LEVOTHYROXINE 75 MCG TABLET PO SCH (05:35)
[2020-07-08 06:10] LABS: Basophils # 0.1 10*3/uL (0.0-0.2); Basophils % 1.7 % (0.0-0.8); Eosinophils # 0.2 10*3/uL (0.0-0.87); Eosinophils % 5.1 % (0.00-10.9); Hematocrit 28.2 VOL% (42.0-52.0); Hemoglobin 9.4 GM/DL (14.0-18.0); Immature Granulocytes % 0.2 %; Immature Granulocytes Absolute 0.01 #; Lymphocytes # 1.1 10*3/uL (1.4-4.0); Lymphocytes % 27.4 % (21.2-54.2); Mean Corpuscular HGB Conc 33.3 GM/DL (32-36); Mean Corpuscular Volume 77.9 FL (87-102); Mean Platelet Volume 10.2 FL (9.6-12.0); Monocytes % 18.6 % (1.7-12.7); Platelet Count 123 T/CUMM (130-400); Red Blood Count 3.62 MC/CUMM (3.8-5.5); Red Cell Distribution Width 18.9 % (9.3-17.3); White Blood Count 4.1 T/CUMM (4-12)
[2020-07-08 06:48] LABS: Albumin 2.7 G/DL (3.4-5.0); Bilirubin,Total 1.2 MG/DL (0.2-1.0); Calcium 9.4 MG/DL (8.5-10.1); Total Protein 7.8 G/DL (6.4-8.3)
[2020-07-08] MEDS: RIFAXIMIN 550 MG TABLET PO SCH ×2 (08:40→20:17)
[2020-07-08] MEDS: ASCORBIC ACID 500 MG TABLET PO SCH (08:40)
[2020-07-08] MEDS: MULTIVITAMIN (BEROCCA) TABLET PO SCH (08:40)
[2020-07-08] MEDS: THIAMINE 100 MG TABLET PO SCH (08:40)
[2020-07-08] MEDS: FUROSEMIDE 40 MG TABLET PO SCH (08:40)
[2020-07-08] MEDS: SPIRONOLACTONE 25 MG TABLET PO SCH ×2 (08:40→20:17)
[2020-07-08] MEDS: ASPIRIN CHEW 81 MG TABLET PO SCH (08:40)
[2020-07-08] MEDS: FERROUS SULFATE 325 MG TABLET PO SCH ×2 (08:40→17:21)
[2020-07-08] MEDS: MAGNESIUM OXIDE 400 MG TABLET PO SCH (08:40)
[2020-07-08 08:55] LABS: Band Neutrophils 2 % (0-10); Eosinophils 6 % (0-10); Lymphocytes 23 % (20-55); Platelet Estimate Adequate; Segmented Neutrophils 46 % (50-85); Total Cells Counted 100
[2020-07-08 08:56] LABS: Anisocytosis 2+; Burr Cells Few; Hypochromasia 1+; Macrocytosis 2+; Ovalocytes Few; Target Cells 3+; Tear Drop Cells Few
[2020-07-08] MEDS: INSULIN LISPRO 100 UNIT/ML SUBCUT SCH ×4 (09:15→20:17)
[2020-07-08] MEDS: CHOLECALCIFEROL 1,000 UNIT TABLET PO SCH (20:17)
[2020-07-08] MEDS: TRAVOPROST 0.004% OPH SOLN 2.5 ML BOTTLE BOTH EYES SCH (20:17)
[2020-07-08] MEDS: ENOXAPARIN 30 MG/0.3 ML SYRINGE SUBCUT SCH (20:17)
[2020-07-08] MEDS: DONEPEZIL 10 MG TABLET PO SCH (20:17)
[2020-07-09] MEDS: LACTULOSE 20 GM/30 ML UDCUP PO SCH ×4 (01:06→13:46)
[2020-07-09] MEDS: LEVOTHYROXINE 75 MCG TABLET PO SCH (05:33)
[2020-07-09 05:58] LABS: Calcium 9.7 MG/DL (8.5-10.1); Osmolality,Calculated 296.8 MOS/KG (273-304)
[2020-07-09] MEDS: INSULIN LISPRO 100 UNIT/ML SUBCUT SCH ×2 (09:00→11:55)
[2020-07-09] MEDS: THIAMINE 100 MG TABLET PO SCH (09:01)
[2020-07-09] MEDS: ASCORBIC ACID 500 MG TABLET PO SCH (09:01)
[2020-07-09] MEDS: FERROUS SULFATE 325 MG TABLET PO SCH (09:01)
[2020-07-09] MEDS: MULTIVITAMIN (BEROCCA) TABLET PO SCH (09:02)
[2020-07-09] MEDS: ASPIRIN CHEW 81 MG TABLET PO SCH (09:02)
[2020-07-09] MEDS: MAGNESIUM OXIDE 400 MG TABLET PO SCH (09:02)
[2020-07-09] MEDS: RIFAXIMIN 550 MG TABLET PO SCH (09:02)
[2020-07-09] MEDS: FUROSEMIDE 40 MG TABLET PO SCH (09:02)
[2020-07-09] MEDS: SPIRONOLACTONE 25 MG TABLET PO SCH (09:02)
[2020-07-09 12:06] VITALS: BP 124/68
== END 2020-07-09 16:31 | disposition home health service (06) | DRG 442 ==
LOC: N.ED 11:36 → N.EDINP 11:36 → SUATTDRO 15:27 → N.5E 16:10 → SUATTDRO 07-08 14:17
PROVIDERS: ADMIT Phlebology; ATTEND Internal Medicine